=== PATIENT | female | born 1995 | race Caucasian/White ===

== ENCOUNTER 2024-01-17 06:17 | Emergency (ER) | payer MEDICARE, MEDICAID ==
[2024-01-17] MEDS ORDERED: Nitroglycerin 0.4 MG TAB 1 EACH ONE (06:44)
[2024-01-17] MEDS ORDERED: Milk Of Magnesia 30 ML UDCUP ONE (06:44)
[2024-01-17] MEDS ORDERED: Lidocaine Viscous Sol 2% 15 ml UD Cup ONE (06:44)
[2024-01-17] MEDS ORDERED: Aspirin Chewable 81 MG TAB ONE (06:45)
[2024-01-17 07:36] LABS: BHCG - Serum Negative (NEGATIVE); Pregs Control Background? CLEAR/WHITE (CLR/WHITE); Pregs Control Bar Appear? YES (CONTROL BAR)
[2024-01-17 07:38] LABS: Troponin I Less than 0.010 ng/mL (< 0.028)
[2024-01-17 07:41] LABS: ALT (SGPT) 21 U/L (8-55); AST (SGOT) 13 U/L (5-34); Albumin 3.7 g/dL (3.5-5.0); Alkaline Phosphatase 118 U/L (40-110); Anion Gap 15 mmol/L (10-20); BUN (Urea Nitrogen) 10 mg/dL (7.0-18.7); Bilirubin, Total Less than 0.2 mg/dL (0.2-1.2); Calc. Creatinine Clearance 0 mL/min (70-130); Calcium 9.4 mg/dL (7.8-10.44); Carbon Dioxide 21 mmol/L (22-29); Chloride 106 mmol/L (98-107); Estimated GFR 105; Globulin 3.6 g/dL (2.4-3.5); Glucose 102 mg/dL (70-105); Lipase 27 U/L (8-78); Potassium 4.1 mmol/L (3.5-5.1); Protein, Total 7.3 g/dL (6.0-8.3); Sodium 138 mmol/L (136-145)
[2024-01-17 07:43] LABS: #Basophils 0.2 thou/uL (0.0-0.2); #Eosinophils 0.6 thou/uL (0.0-0.7); #Lymphocytes 3.7 thou/uL (1.20-3.40); #Monocytes 0.4 thou/uL (0.11-0.59); #Neutrophils 7.4 thou/uL (1.40-6.50); %Basophils 1.9 % (0.0-1.0); %Eosinophils 4.8 % (0.0-10.0); %Lymphocytes 29.8 % (21.0-51.0); %Monocytes 3.6 % (0.0-10.0); %Neutrophils 59.9 % (42.0-75.0); Hematocrit 37.7 % (36.0-47.0); Hemoglobin 11.5 g/dL (12.0-16.0); Hypochromia SLIGHT = 6-15 cells (100X) (0-5/hpf); MDiff Complete? YES; Mean Corpuscular HGB CONC 30.6 g/dL (32.0-36.0); Mean Corpuscular Hemoglobin 24.5 pg (27.0-31.0); Mean Corpuscular Volume 80.1 fl (78.0-98.0); Mean Platelet Volume 6.8 fL (7.4-10.4); Platelet Adequacy Comment Appears Increased; Platelet Count 418 10x3/uL (130-400); RBC Distribution Width 12.9 % (11.5-14.5); Red Blood Cell (RBC) Count 4.71 mill/uL (4.20-5.40); White Blood Cell (WBC) Count 12.3 10x3/uL (4.8-10.8)
[2024-01-17 10:30] LABS: Troponin I Less than 0.010 ng/mL (< 0.028)
== END 2024-01-17 11:05 | disposition home or self-care (01) ==
LOC: MADERS 06:17
DX: R07.9 Chest pain, unspecified (principal); I10 Essential (primary) hypertension; F17.210 Nicotine dependence, cigarettes, uncomplicated; Z79.899 Other long term (current) drug therapy
CPT/HCPCS: 71046; 80053; 83690; 84484; 84703; 85025; 93005; 94760